=== PATIENT | female | born 1930 | race Caucasian/White ===

== ENCOUNTER 2017-02-26 12:13 | Outpatient (CLI) | payer MEDICARE, OTHER ==
[2017-02-26 12:44] LABS: BASOPHILS % (AUTO) 0.5 %; EOSINOPHILS # (AUTO) 0.1 10^3/uL (0.0-0.7); EOSINOPHILS % (AUTO) 2.7 %; HCT - HEMATOCRIT 38.3 % (37.0-47.0); HGB - HEMOGLOBIN 13.3 g/dL (12.0-16.0); LYMPHOCYTES # (AUTO) 0.8 10^3/uL (1.5-3.5); LYMPHOCYTES % (AUTO) 18.1 %; MEAN CORPUSCULAR HGB CONC 34.7 g/dL (32.0-36.0); MEAN CORPUSCULAR VOLUME 89.3 fL (81.0-99.0); MEAN PLATELET VOLUME 6.1 fL (7.9-10.8); MONOCYTES # (AUTO) 0.4 10^3/uL (0.0-1.0); MONOCYTES % (AUTO) 9.8 %; NEUTROPHILS # (AUTO) 3.1 10^3/uL (1.5-6.6); NEUTROPHILS % (AUTO) 68.9 %; RED CELL DISTRIBUTION WIDTH 13.7 % (12.0-15.0); UNCORRECTED WHITE BLOOD COUNT 4.5 x10^3/uL; WHITE BLOOD COUNT 4.5 x10^3/uL (4.8-10.8)
[2017-02-26 12:53] LABS: CALCIUM 9.2 mg/dL (8.5-10.3); CREATININE 0.7 mg/dL (0.4-1.0); POTASSIUM 4.1 mmol/L (3.5-5.0)
[2017-02-26 13:25] LABS: THYROID STIMULATING HORMONE 0.2 uIU/mL (0.34-5.60)
== END 2017-02-26 12:14 | disposition home or self-care (01) ==
LOC: LAB 12:13
PROVIDERS: ATTEND Family Medicine
DX: Z51.81 Encounter for therapeutic drug level monitoring (principal); I51.7 Cardiomegaly; E03.9 Hypothyroidism, unspecified; E87.8 Other disorders of electrolyte and fluid balance, not elsewhere classified; I48.91 Unspecified atrial fibrillation; R19.7 Diarrhea, unspecified; R15.2 Fecal urgency; Z12.11 Encounter for screening for malignant neoplasm of colon
CPT/HCPCS: 36415; 80048; 83880; 84439; 84443; 85025

== ENCOUNTER 2017-03-02 12:26 | Outpatient (CLI) | payer MEDICARE, OTHER | END 2017-03-02 12:27 | disposition home or self-care (01) | LOC: LAB.R 12:26 | PROVIDERS: ATTEND Family Medicine | DX: R19.7 Diarrhea, unspecified (principal); R15.2 Fecal urgency; Z12.11 Encounter for screening for malignant neoplasm of colon; E87.8 Other disorders of electrolyte and fluid balance, not elsewhere classified; E03.9 Hypothyroidism, unspecified; I48.91 Unspecified atrial fibrillation; I51.7 Cardiomegaly; Z51.81 Encounter for therapeutic drug level monitoring | CPT/HCPCS: 87045; 87046; 87177; 87209 ==

== ENCOUNTER 2017-03-06 08:00 | Outpatient (CLI) | payer MEDICARE, OTHER | END 2017-03-06 08:01 | disposition home or self-care (01) | LOC: LAB.R 08:00 | PROVIDERS: ATTEND Family Medicine | DX: Z51.81 Encounter for therapeutic drug level monitoring (principal); R19.7 Diarrhea, unspecified; R15.2 Fecal urgency; Z12.11 Encounter for screening for malignant neoplasm of colon; I48.91 Unspecified atrial fibrillation; I51.7 Cardiomegaly | CPT/HCPCS: 82270; 87045; 87046; 87493 ==

== ENCOUNTER 2017-05-21 12:34 | Outpatient (CLI) | payer MEDICARE, OTHER ==
[2017-05-21 14:19] LABS: THYROID STIMULATING HORMONE 0.19 uIU/mL (0.34-5.60)
[2017-05-21 14:21] LABS: FREE T4 (FREE THYROXINE) 1.31 ng/dL (0.58-1.64)
== END 2017-05-21 12:35 | disposition home or self-care (01) ==
LOC: LAB 12:34
PROVIDERS: ATTEND Family Medicine
DX: E03.9 Hypothyroidism, unspecified (principal)
CPT/HCPCS: 36415; 84439; 84443; 84481

== ENCOUNTER 2017-08-30 09:28 | Outpatient (CLI) | payer MEDICARE, OTHER ==
--- NOTE | 2017-08-30 15:04 | DEXA Report ---
DEXA SCAN: 08/30/2017 CLINICAL INDICATION: Osteoporosis. TECHNIQUE: Dual energy x-ray absorptiometry (DXA) was performed on a [employer] system. Regions measured are the AP spine, femoral neck, and, if needed, forearm. COMPARISON: None. In accordance with the International Society for Clinical Densitometry (ISCD) guidelines, data from previous exams may be reanalyzed using current recommendations and techniques. This is done to allow a more accurate basis for comparison with the current study. FINDINGS Data for the lumbar spine is as follows: REGION BMD (g/cm/cm) T-SCORE Z-SCORE L1 1.068 -0.5 1.6 L2 1.042 -1.3 0.8 L3 1.222 0.2 2.3 L4 1.237 0.3 2.5 L1-L4 1.149 -0.3 1.9 NOTE: All evaluable vertebrae are used for classification. Data for the hip is as follows: REGION BMD (g/cm/cm) T-SCORE Z-SCORE Neck 0.685 -2.5 0.0 TOTAL 0.736 -2.2 0.3 NOTE: The femoral neck or total proximal femur, whichever is lowest, is used for classification. IMPRESSION WHO CLASSIFICATION BASED ON THE INTERNATIONAL REFERENCE STANDARD IS OSTEOPOROSIS. (REFERENCE LEFT FEMORAL NECK). FRACTURE RISK IS HIGH. RECOMMENDATION: Patients with diagnosis of osteoporosis or osteopenia should have regular bone mineral density assessment. For those eligible for Medicare, routine testing is allowed once every 2 years. Testing frequency can be increased for patients who have rapidly progressing disease or for those who are receiving medical therapy to restore bone mass. COMMENT World Health Organization (WHO) definitions for osteoporosis and osteopenia: NORMAL BMD: T-score at 1.0 or higher, fracture risk is low. OSTEOPENIA BMD: T-score between 1.0 and -2.5, fracture risk is increased. OSTEOPOROSIS BMD: T-score at 2.5 or lower, fracture risk high. National Osteoporosis Foundation recommends: 1. Obtain adequate dietary calcium (at least 1200 mg per day) and vitamin D (400 -800 international units per day). 2. Participate, as appropriate, in regular weightbearing and muscle- strengthening exercise. 3. Avoid tobacco use and reduce alcohol and caffeine intake. 4. For more detailed information see the website at www.NOF.org. TD: 08/30/2017 11:11 MTDTom
== END 2017-08-30 09:29 | disposition home or self-care (01) ==
LOC: DI 09:28
PROVIDERS: ATTEND Family Medicine
DX: Z13.820 Encounter for screening for osteoporosis (principal); M81.0 Age-related osteoporosis without current pathological fracture; Z78.0 Asymptomatic menopausal state; M94.9 Disorder of cartilage, unspecified
CPT/HCPCS: 77080

== ENCOUNTER 2019-01-04 12:23 | Observation (INO) | payer MEDICARE, OTHER ==
[2019-01-04] MEDS ORDERED: diltiaZEM INJ 5 MG/ML VIAL ONE (13:10)
[2019-01-04] MEDS ORDERED: diltiaZEM INJ 5 MG/ML VIAL IVP STA (13:22)
--- NOTE | 2019-01-04 13:23 | ED Physician Documentation ---
PD HPI DYSPNEA - Stated complaint Stated Complaint: LOW BP - Chief complaint Chief Complaint: Cardiac - History obtained from History obtained from: Patient - History of Present Illness Timing - onset: Yesterday (This is a very pleasant 88-year-old woman with a remote history of paroxysmal atrial fibrillation who presents with weakness that started yesterday. She says it started while at the dentist although it does not sound like she had any meds/anesthetic. Since yesterday she has had weakness and shortness of breath. She has a longstanding cough and admits to some chest pressure since yesterday. She had a syncopal episode on getting out of the shower today without injury. No pedal edema. No changes in BMs, no urinary complaints.) Review of Systems Ten Systems: 10 systems reviewed and negative Constitutional: reports: Fatigue. denies: Fever, Chills, Myalgias Nose: denies: Rhinorrhea / runny nose, Congestion Cardiac: reports: Chest pain / pressure. 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 - Present Medications Home Medications: Ambulatory Orders Medication Instructions Recorded Confirmed Thyroid,Pork [[place] Thyroid] 15 mg PO QDAC 09/06/17 01/04/19 RX: Telmisartan 40 mg PO DAILY 03/07/18 01/04/19 RX: Thyroid,Pork [Rake Thyroid] 60 mg PO QDAC 01/04/19 01/04/19 - Allergies Allergies/Adverse Reactions: Allergies Allergy/AdvReac Type Severity Reaction Status Date / Time hydrocodone bitartrate * Allergy Nausea Verified 01/02/19 14:07 [From Vicodin] oxycodone [Oxycodone] Allergy Nausea Verified 01/02/19 14:07 Penicillins Allergy Hives Verified 01/02/19 14:07 tramadol Allergy Nausea Verified 01/02/19 14:07 - Social History Does the pt smoke?: No Smoking Status: Never smoker Does the pt drink ETOH?: No Does the pt have substance abuse?: No - Family History Family history: reports: Non contributory PD ED PE NORMAL - Vitals Vital signs reviewed: Yes - General General: Alert and oriented X 3, No acute distress - HEENT HEENT: PERRL, EOMI - Neck Neck: Supple, no meningeal sign, No bony TTP - Cardiac Cardiac: Other (Rapid and irregular without murmur) - Respiratory Respiratory: Other (She appears breathless but her lungs are clear) - Abdomen Abdomen: Normal bowel sounds, Soft, Non tender - Extremities Extremities: No edema, No calf tenderness / cord - Neuro Neuro: Alert and oriented X 3, Normal speech Results - Vitals Vitals: Vital Signs - 24 hr 01/04/19 01/04/19 01/04/19 12:28 12:45 13:58 Temperature 36.5 C Heart Rate 76 130 H 105 H Respiratory 18 20 16 Rate Blood Pressure 113/55 L 103/59 L 106/62 O2 Saturation 94 98 98 01/04/19 15:00 Temperature Heart Rate 58 L Respiratory 19 Rate Blood Pressure 94/55 L O2 Saturation 98 Oxygen O2 Source Room air - EKG (time done) 1232 Rate: Rate (enter#) (111) Rhythm: Atrial fibrillation Intervals: LBBB Computer interpretation: Agree with computer 1422 Rate: Rate (enter#) (56) Rhythm: NSR Intervals: LBBB Computer interpretation: Agree with computer - Labs Labs: Laboratory Tests 01/04/19 01/04/19 01/04/19 12:45 12:45 12:45 WBC 5.0 RBC 4.39 Hgb 14.0 Hct 40.1 MCV 91.3 MCH 31.9 H MCHC 34.9 RDW 13.2 Plt Count 204 MPV 9.0 Neut # (Auto) 3.9 Lymph # (Auto) 0.7 L [place] # (Auto) 0.3 Eos # (Auto) 0.0 Baso # (Auto) 0.0 Absolute Nucleated RBC 0.00 Nucleated RBC % 0.0 PT 12.0 INR 1.1 D-Dimer Sodium 138 Potassium 4.0 Chloride 102 Carbon Dioxide 26 Anion Gap 10.0 BUN 24 H Creatinine 0.9 Estimated GFR (MDRD) 59 L Glucose 131 H Calcium 9.7 Total Bilirubin 0.9 AST 27 ALT 23 Alkaline Phosphatase 72 Total Creatine Kinase 94 Troponin I High Sens B-Natriuretic Peptide Total Protein 7.1 Albumin 3.8 Globulin 3.3 Albumin/Globulin Ratio 1.2 Lipase 34 01/04/19 01/04/19 01/04/19 12:45 12:45 12:45 WBC RBC Hgb Hct MCV MCH MCHC RDW Plt Count MPV Neut # (Auto) Lymph # (Auto) [place] # (Auto) Eos # (Auto) Baso # (Auto) Absolute Nucleated RBC Nucleated RBC % PT INR D-Dimer 211.8 Sodium Potassium Chloride Carbon Dioxide Anion Gap BUN Creatinine Estimated GFR (MDRD) Glucose Calcium Total Bilirubin AST ALT Alkaline Phosphatase Total Creatine Kinase Troponin I High Sens 34.1 H* B-Natriuretic Peptide 392 H Total Protein Albumin Globulin Albumin/Globulin Ratio Lipase 01/04/19 14:41 WBC RBC Hgb Hct MCV MCH MCHC RDW Plt Count MPV Neut # (Auto) Lymph # (Auto) [place] # (Auto) Eos # (Auto) Baso # (Auto) Absolute Nucleated RBC Nucleated RBC % PT INR D-Dimer Sodium Potassium Chloride Carbon Dioxide Anion Gap BUN Creatinine Estimated GFR (MDRD) Glucose Calcium Total Bilirubin AST ALT Alkaline Phosphatase Total Creatine Kinase Troponin I High Sens 124.2 H* B-Natriuretic Peptide Total Protein Albumin Globulin Albumin/Globulin Ratio Lipase - Rads (name of study) 1v chest Radiology: EMP read contemporaneously (Question left tiny pleural effusion with clear lungs) PD MEDICAL DECISION MAKING - ED course ED course: This is an 88-year-old woman who presents with symptomatic atrial fibrillation probably starting yesterday by history. After 10 mg of diltiazem IV her heart rate was down around 100 and we started a procainamide drip. After about 20 minutes or so she had a sinus pause of 4.6 seconds and then was in sinus rhythm. She was symptom-free after that. A serial troponin was checked given the modest rise of the first 1 and it did almost triple going from 34-126. Case was discussed by phone with Dr. Rico,, on-call cardiology at [facility] who felt it was probably just a mild troponin leak from having had the rapid atrial fibrillation. He recommends a formal rule out and echo and pharmacologic stress test. He did not feel that she needed an interventional approach at this point. Spoke with Dr. Modi for observation. Departure - Departure Disposition: ED Place in Observation Clinical Impression: Chest pain, Atrial fibrillation Condition: Fair
[2019-01-04] MEDS ORDERED: ASPIRIN CHEW 81 MG TABLET PO STA (13:36)
[2019-01-04] MEDS ORDERED: PROCAINAMIDE 1,000 MG in SODIUM CHLORIDE 0.9% 240 ML IV STA (13:36)
[2019-01-04 13:42] LABS: BASOPHILS % (AUTO) 0.2 %; EOSINOPHILS % (AUTO) 0.8 %; LYMPHOCYTES # (AUTO) 0.7 10^3/uL (1.5-3.5); LYMPHOCYTES % (AUTO) 13.9 %; MEAN CORPUSCULAR HEMOGLOBIN 31.9 pg (27.0-31.0); MEAN CORPUSCULAR HGB CONC 34.9 g/dL (32.0-36.0); MEAN CORPUSCULAR VOLUME 91.3 fL (81.0-99.0); MONOCYTES # (AUTO) 0.3 10^3/uL (0.0-1.0); MONOCYTES % (AUTO) 5.1 %; NEUTROPHILS # (AUTO) 3.9 10^3/uL (1.5-6.6); NEUTROPHILS % (AUTO) 79.6 %; PLT - PLATELET COUNT 204 10^3/uL (130-450); RED BLOOD COUNT 4.39 10^6/uL (4.20-5.40); RED CELL DISTRIBUTION WIDTH 13.2 % (12.0-15.0)
--- NOTE | 2019-01-04 13:43 | XRAY Report ---
Reason: dyspnea Procedure Date: 01/04/2019 Accession Number: [id number] / [id number] Procedure: XR - Chest 1 View X-Ray CPT Code: 39440 FULL RESULT: EXAM: CHEST RADIOGRAPHY EXAM DATE: 01/04/2019 01:34 PM. CLINICAL HISTORY: Dyspnea. COMPARISON: XR CHEST PA AND LAT 01/18/2008 10:52 AM. TECHNIQUE: 1 view. FINDINGS: Lungs/Pleura: No focal opacities evident. No right pleural effusion. Question tiny left pleural effusion No pneumothorax. Mediastinum: Heart size accentuated by the AP portable technique. Other: Degenerative change in the spine with thoracolumbar junction levoscoliosis. IMPRESSION: Clear lungs. RADIA
[2019-01-04 13:52] LABS: INR 1.1 (0.8-1.2)
[2019-01-04 14:02] LABS: ALBUMIN 3.8 g/dL (3.2-5.5); ALBUMIN/GLOBULIN RATIO 1.2 (1.0-2.2); BILIRUBIN,TOTAL 0.9 mg/dL (0.2-1.0); CALCIUM 9.7 mg/dL (8.5-10.3); CREATININE 0.9 mg/dL (0.4-1.0); TOTAL PROTEIN 7.1 g/dL (6.7-8.2)
[2019-01-04] MEDS ORDERED: PROCHLORPERAZINE 10 MG/2 ML VIAL IVP PRN (16:08)
[2019-01-04] MEDS ORDERED: IBUPROFEN 400 MG TABLET PO PRN (16:08)
[2019-01-04] MEDS ORDERED: SODIUM CHLORIDE FLUSH 0.9% 10 ML SYRINGE IVP PRN (16:08)
[2019-01-04] MEDS ORDERED: NITROGLYCERIN SL 0.4 MG TABLET SL PRN (16:56)
[2019-01-04] MEDS: SODIUM CHLORIDE FLUSH 0.9% 10 ML SYRINGE IVP SCH ×2 (18:42→23:29)
--- NOTE | 2019-01-04 18:49 | HISTORY & PHYSICAL EXAMINATION ---
DATE OF SERVICE: 01/04/2019 Physician: Daniela Modi MD HISTORY OF PRESENT ILLNESS: This is an 88-year-old white female with a history of hypothyroidism on replacement [place] Thyroid, history of wide fluctuations in blood pressure, and orthostatic near-syncope in the past. Patient remembers remote atrial fibrillation and having a stress test once in the past. These results are not available to us. Today, the patient was finished with a shower, sitting and drying on her toilet seat, had a prodrome of lightheadedness when she stood up, and then found herself on the floor of the bathroom. She has never had full syncope before today. She was able to get up and then started to experience chest discomfort in the central chest with radiation to her neck and also a racing heart. She was brought to the emergency room and found to have atrial fibrillation with rapid ventricular response. She was treated with Cardizem bolus and then a Procainamide drip, and did convert to sinus rhythm, after having a 4.6 second pause of asystole. She had resolution of her chest pain symptoms and currently has no dizziness or any other complaints whatsoever. She does describe episodes of lightheadedness that occur infrequently, possibly up to 4 times a year, where she "has to hold onto her or she would fall" if she is in the upright position. She says she knows that these symptoms are caused by low blood pressure. MEDICATIONS 1. [place] Thyroid 75 mg p.o. daily. 2. Telmisartan 40 mg daily. ALLERGIES 1. TYLENOL, which caused itching. 2. HYDROCODONE AND OXYCODONE, which caused unknown reaction. 3. PENICILLINS. 4. TRAMADOL. FAMILY HISTORY: Family history of coronary artery disease in her father in his 80s. She has 2 children, 1 of either suicide or foul play. She has a daughter, who is healthy. 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 She lives with her currently and is active, gardens. She has never smoked in her life, drinks very rare alcohol, less than twice a year. No illicit drug use history. REVIEW OF SYSTEMS: A comprehensive review of systems was performed and the pertinent positives are listed, the rest are negative. PHYSICAL EXAMINATION GENERAL: Elderly white female who appears much younger than her stated age. VITAL SIGNS: Blood pressure 100/60 and heart rate was 130 on presentation. Her current blood pressure is 115/48, with a heart rate of 64, in sinus rhythm, afebrile, room air saturation 100%. HEENT: Unremarkable. NECK: Without JVD or carotid bruits. CHEST: Clear. HEART: Normal heart sounds. No murmurs. No gallop or click. ABDOMEN: Soft, positive bowel sounds, nontender. EXTREMITIES: No clubbing, cyanosis or edema. NEUROLOGIC: Grossly intact. LABORATORY DATA: Normal electrolytes. BUN 24, creatinine 0.9. Normal liver tests. Normal lipase. BNP 392. Her hs-roponins were 34.1, then 124. INR is normal at 1.1. D-dimer is normal at 211. CBC is normal. Chest x-ray: Normal. EKG #1: Atrial fibrillation with left bundle branch block. EKG #2: Sinus bradycardia with left bundle branch block. There was no old EKG available for comparison before today. IMPRESSION/DIAGNOSES 1. Chest pain. 2. Atrial fibrillation with rapid ventricular response. 3. Syncope. 4. History of hypertension 5. History of orthostasis. 6. Elevated troponins. PLAN: Place patient in Observation status on telemetry. Cycle troponins to determine if they are still continuing to rise. The EKG is not helpful regarding ischemia because of the left bundle branch block, and it is unknown if LBBB is new or old. Obtain an Echo to evaluate for resting wall motion abnormalities that are dramatic, more than just what is expected with left bundle branch block. Proceed to a stress test if there is no acute CO. The emergency room doctor had reached out to the [facility] Numerologist, who recommended that the above be the course of management for her. Will also check fasting serum lipids and treat per guidelines. Begin sublingual nitroglycerin p.r.n. CHADS score is unknown until she has an Echo to establish LVEF. However, her age is greater than 75, and there is a history of hypertension; therefore, she already has a score of 2. Will therefore start therapeutic anticoagulation using Lovenox for treatment of stroke prophylaxis in Afib. DEEP VENOUS THROMBOSIS PROPHYLAXIS: Pharmaceutical. CODE STATUS: FULL CODE. ATTESTATION: Patient is expected to be discharged or transferred to another facility within 96 hours: Yes. cc: Servando Martin DO TD: 01/04/2019 18:10 MTDTom
[2019-01-04] MEDS: FAMOTIDINE 20 MG TABLET PO SCH (20:36)
[2019-01-04] MEDS: ENOXAPARIN 60 MG/0.6 ML SYRINGE SUBQ SCH (20:36)
[2019-01-04] MEDS: METOPROLOL TARTRATE 25 MG TABLET PO SCH (20:38)
[2019-01-04] MEDS ORDERED: ATORVASTATIN 40 MG TABLET PO SCH (21:00)
[2019-01-05 06:15] LABS: BUN - BLOOD UREA NITROGEN 22 mg/dL (6-20); CALCIUM 8.9 mg/dL (8.5-10.3); CARBON DIOXIDE - CO2 27 mmol/L (21-32); CHLORIDE 111 mmol/L (101-111); CHOL/HDL RATIO 4.5 (<4.4); CHOLESTEROL 156 mg/dL; CREATININE 0.7 mg/dL (0.4-1.0); GFR - MDRD 79 (>89); GLUCOSE 103 mg/dL (70-100); HDL CHOLESTEROL 35 mg/dL; LDL CHOLESTEROL,CALCULATED 108 mg/dL; LDL/HDL RATIO 3.1 (<4.4); MAGNESIUM 2.2 mg/dL (1.7-2.8); SODIUM 142 mmol/L (135-145); VLDL CHOLESTEROL 13 mg/dL
[2019-01-05] MEDS ORDERED: THYROID 60 MG TABLET PO SCH (07:00)
[2019-01-05] MEDS: METOPROLOL TARTRATE 25 MG TABLET PO SCH (08:33)
[2019-01-05] MEDS: FAMOTIDINE 20 MG TABLET PO SCH (08:33)
[2019-01-05] MEDS: ENOXAPARIN 60 MG/0.6 ML SYRINGE SUBQ SCH (08:34)
[2019-01-05] MEDS: SODIUM CHLORIDE FLUSH 0.9% 10 ML SYRINGE IVP SCH (08:34)
[2019-01-05] MEDS ORDERED: POLYETHYLENE GLYCOL 3350 17 GM PACKET PO SCH (09:00)
[2019-01-05] MEDS ORDERED: LOSARTAN 50 MG TABLET PO SCH (09:00)
[2019-01-05] MEDS ORDERED: ASPIRIN EC 81 MG TABLET PO SCH (11:04)
--- NOTE | 2019-01-05 11:59 | Discharge Plan ---
Discharge Plan Problem Reviewed?: Yes Disposition: 02 Transfer Acute Care Hosp Condition: Serious No Smoking: If you smoke, Please STOP! Call for help. Follow-up with: Servando Martin DO [Primary Care Provider] -
[2019-01-05] MEDS ORDERED: D5NS W/20 MEQ KCL 1,000 ML IV SCH (12:00)
[2019-01-05 12:58] VITALS: BP 143/67
--- NOTE | 2019-01-05 17:20 | DISCHARGE SUMMARY ---
Discharge Summary Admit Date: 01/04/19 Discharge Date: 01/05/19 Discharging Provider: Dr Daniela Modi Primary Care Provider: Dr Servando Martin Code Status: Attempt Resuscitation Condition at Discharge: Serious Discharge Disposition: 02 Transfer Acute Care Hosp - DIAGNOSES Admission Diagnoses: 1) Chest pain 2) LBBB 3) Afib with RVR 4) Syncope 5) Hx orthostatic hypotension Discharge Diagnoses with Status of Each Condition: See below - HPI History of Present Illness: This is an 88-year-old white female with a remote history of A. fib and has a history of hyper hypothyroidism on [place] Thyroid replacement and history of hypertension on telmisartan. Patient reports orthostatic lightheadedness and has never had syncope. The patient was brought to the emergency room by her after having 2 days of intermittent chest pressure and new weakness and she had a syncopal event: A fter taking a shower, after drying off on the toilet seat, she stood up and became lightheaded and then had syncope in the bathroom. She awakened and was able to call for her who helped her into bed. He called the PCP who advised she get to the ER. In the ER she was found to have new onset of A. fib with RVR, at a rate of 130 and stable blood pressure. She was given Cardizem 10 mg IV push then put on a Procan drip which resulted in a 4.6-second pause and she converted to sinus rhythm. There was no further chest pain after she converted to sinus rhythm. She was placed in Observation status, on telemetry for evaluation of the chest pain and management of the rhythm. - HOSPITAL COURSE Hospital Course: 1) Acute NSTEMI. The EKG in the ER showed rapid A. fib with a left bundle branch block, then sinus rhythm with left bundle branch block. There is no old EKG here for comparison. Her first at hs-Troponin was 34. The next hs-Troponins continued to rise: 124>> 523>> 841>> 656. She had been started on therapeutic Lovenox doses for the A. fib (see below), and with the hs-troponin increase, she was started on beta-ruth orally, high-dose statin and daily aspirin. This Hospitalist reached out to a Deputy Felony Clerk at [facility] who accepted the patient in transfer for coronary angiography, where she was transferred by [facility] ambulance. 2) LBBB. This was managed as new LBBB, criteria for ruling in for an TN. 3) Afib with RVR. Patient reported minimal palpitation symptoms when she was in Afib. After chemical cardioversion in the ER, she remained in sinus rhyth. Her CHADS score was 2 and she was started on Lovenox 1 mg/kg subcutaneous twice daily. She was also put on beta-blockers orally to treat both the TN and any recurrences of A. fib with RVR. She underwent an Echo which showed LVEF of approximately 45%, moderate mitral regurg, moderate tricuspid regurg and PA pressure 45 mmHg. 4) Syncope. The patient reported a brief prodrome of lightheadedness. She reported a history of several years of lightheadedness associated with orthostasis (see below), And described that these always happened in the standing position and she manages them by "just holding onto her 's arm". This was the only time he was not present near her. She and the were given education regarding management of lightheadedness and orthostatic symptoms. 5) Orthostatic hypotension. The patient describes years of having very erratic blood pressures and by this she meant that there were rapid drops in her blood pressure which were associated with symptoms. She had never been on support stockings or Midodrine for this problem. 6) Hx HTN Due to a history of orthostasis and running a soft BP here of 110/40's, her Telmisartan home medication was discontinued, in order to use a small dose of beta-ruth for the TN and A. fib management. 7) Hx Hypothyroidism. Her TSH level was stable. She was continued on her home dose of [place] Thyroid while here. - ALLERGIES Allergies/Adverse Reactions: Allergies Allergy/AdvReac Type Severity Reaction Status Date / Time hydrocodone bitartrate * Allergy Nausea Verified 01/02/19 14:07 [From Vicodin] oxycodone [Oxycodone] Allergy Nausea Verified 01/02/19 14:07 Penicillins Allergy Hives Verified 01/02/19 14:07 tramadol Allergy Nausea Verified 01/02/19 14:07 - MEDICATIONS Home Medications: Ambulatory Orders Medication Instructions Recorded Confirmed Thyroid,Pork [[place] Thyroid] 15 mg PO QDAC 09/06/17 01/04/19 Telmisartan 40 mg PO DAILY 10/29/18 08/28/19 Thyroid,Pork [[place] Thyroid] 60 mg PO QDAC 01/04/19 01/04/19 - PHYSICAL EXAM AT DISCHARGE General Appearance: positive: No acute distress Eyes Bilateral: positive: Normal inspection ENT: positive: Dry mucous membranes Neck: positive: Nml inspection, Thyroid nml, No JVD Respiratory: positive: No respiratory distress, Breath sounds nml Cardiovascular: positive: Regular rate & rhythm, No murmur Back: positive: Other (Scoliosis) Extremities: positive: No pedal edema Neurologic/Psychiatric: positive: Oriented x3, Other (Non-focal exam.) - LABS Result Diagrams: 01/04/19 12:45 01/05/19 05:41 - DIAGNOSTIC IMAGING Diagnostic Imaging Results: Final report reviewed - FOLLOW UP Follow Up: See PCP after discharge from [facility] - TIME SPENT Time Spent in Discharge (Minutes): 60
== END 2019-01-05 13:51 | disposition short-term general hospital (02) ==
LOC: ED 12:23 → MS2 16:06
PROVIDERS: ADMIT Internal Medicine; ATTEND Internal Medicine
DX: I21.4 Non-ST elevation (NSTEMI) myocardial infarction (principal); I44.7 Left bundle-branch block, unspecified; I48.0 Paroxysmal atrial fibrillation; I11.9 Hypertensive heart disease without heart failure; I34.0 Nonrheumatic mitral (valve) insufficiency; I95.1 Orthostatic hypotension; E03.9 Hypothyroidism, unspecified
CPT/HCPCS: 36415; 71045; 80048; 80053; 80061; 82550; 83690; 83735; 83880; 84443; 84484; 85025; 85379; 85610; 93005; 93306; 96365; 96372; 96375; 99285; A9270; G0378; J1650; J2690; 83721

== ENCOUNTER 2019-05-04 15:46 | Outpatient (CLI) | payer MEDICARE, OTHER | END 2019-05-04 15:47 | disposition home or self-care (01) | LOC: LAB 15:46 | PROVIDERS: ATTEND Family Medicine | DX: R06.00 Dyspnea, unspecified (principal) | CPT/HCPCS: 36415; 85379 ==

== ENCOUNTER 2019-05-04 17:05 | Emergency (ER) | payer MEDICARE, OTHER ==
[2019-05-04 17:40] LABS: BASOPHILS % (AUTO) 0.3 %; EOSINOPHILS # (AUTO) 0.1 10^3/uL (0.0-0.7); EOSINOPHILS % (AUTO) 2.1 %; HGB - HEMOGLOBIN 11.4 g/dL (12.0-16.0); LYMPHOCYTES % (AUTO) 16.8 %; MEAN CORPUSCULAR HEMOGLOBIN 29.5 pg (27.0-31.0); MEAN CORPUSCULAR HGB CONC 31.4 g/dL (32.0-36.0); MONOCYTES # (AUTO) 0.5 10^3/uL (0.0-1.0); MONOCYTES % (AUTO) 8.3 %; NEUTROPHILS # (AUTO) 4.4 10^3/uL (1.5-6.6); PLT - PLATELET COUNT 290 10^3/uL (130-450); RED BLOOD COUNT 3.86 10^6/uL (4.20-5.40); RED CELL DISTRIBUTION WIDTH 14.7 % (12.0-15.0); WHITE BLOOD COUNT 6.1 x10^3/uL (4.8-10.8)
--- NOTE | 2019-05-04 17:41 | ED Physician Documentation ---
History of Present Illness - Stated complaint Stated Complaint: SOA/COUGH - Chief complaint Chief Complaint: General - History obtained from History obtained from: Patient - History of Present Illness Timing: Last night (88-year-old woman with history of atrial fibrillation on Xarelto presents with orthopnea starting last night. And some breathlessness. No chest pain. She does have pedal edema on the left. She is exactly 3 weeks out from a left knee replacement. She saw her physician who called me prior to arrival and he had done a d-dimer which was up in the 900s so she was sent here for evaluation for potential PE.) Review of Systems Ten Systems: 10 systems reviewed and negative Constitutional: denies: Fever, Chills Cardiac: denies: Chest pain / pressure, Palpitations Respiratory: reports: Dyspnea. 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 - Present Medications Home Medications: Ambulatory Orders Medication Instructions Recorded Confirmed Thyroid,Pork [[place] Thyroid] 15 mg PO QDAC 09/06/17 01/04/19 Telmisartan 40 mg PO DAILY 03/07/18 01/04/19 Thyroid,Pork [[place] Thyroid] 60 mg PO QDAC 01/04/19 01/04/19 - Allergies Allergies/Adverse Reactions: Allergies Allergy/AdvReac Type Severity Reaction Status Date / Time hydrocodone bitartrate * Allergy Nausea Verified 05/04/19 17:22 [From Vicodin] oxycodone [Oxycodone] Allergy Nausea Verified 05/04/19 17:22 Penicillins Allergy Hives Verified 05/04/19 17:22 - Social History Does the pt smoke?: No Smoking Status: Never smoker Does the pt drink ETOH?: No Does the pt have substance abuse?: No PD ED PE NORMAL - Vitals Vital signs reviewed: Yes - General General: Alert and oriented X 3, No acute distress - Neck Neck: Supple, no meningeal sign, No JVD - Cardiac Cardiac: RRR, No murmur - Respiratory Respiratory: No respiratory distress, Clear bilaterally - Abdomen Abdomen: Non tender - Back Back: No CVA TTP, No spinal TTP - Derm Derm: Normal color, Warm and dry - Extremities Extremities: Other (Moderate left leg edema below the knee without evidence of infection) - Neuro Neuro: Alert and oriented X 3, Normal speech Results - Vitals Vitals: Vital Signs - 24 hr 05/04/19 05/04/19 17:16 19:11 Temperature 36.6 C Heart Rate 73 Respiratory 20 Rate Blood Pressure 176/159 H 154/82 H Oxygen O2 Source Room air - EKG (time done) 1730 Rate: Rate (enter#) (77) Rhythm: NSR Intervals: Normal VT, LBBB Compare to prior EKG: Unchanged from prior EKG (Unchanged from January 05 of this year) Computer interpretation: Agree with computer - Labs Labs: Laboratory Tests 05/04/19 05/04/19 05/04/19 17:30 17:30 17:30 WBC 6.1 RBC 3.86 L Hgb 11.4 L Hct 36.3 L MCV 94.0 MCH 29.5 MCHC 31.4 L RDW 14.7 Plt Count 290 MPV 8.0 Neut # (Auto) 4.4 Lymph # (Auto) 1.0 L [place] # (Auto) 0.5 Eos # (Auto) 0.1 Baso # (Auto) 0.0 Absolute Nucleated RBC 0.00 Nucleated RBC % 0.0 PT 13.9 H INR 1.2 Sodium 139 Potassium 3.6 Chloride 104 Carbon Dioxide 26 Anion Gap 9.0 BUN 18 Creatinine 0.7 Estimated GFR (MDRD) 79 L Glucose 102 H Calcium 9.1 Total Bilirubin 0.7 AST 48 H ALT 47 Alkaline Phosphatase 182 H Troponin I High Sens B-Natriuretic Peptide Total Protein 7.3 Albumin 3.6 Globulin 3.7 Albumin/Globulin Ratio 1.0 Lipase 37 05/04/19 05/04/19 17:30 17:30 WBC RBC Hgb Hct MCV MCH MCHC RDW Plt Count MPV Neut # (Auto) Lymph # (Auto) [place] # (Auto) Eos # (Auto) Baso # (Auto) Absolute Nucleated RBC Nucleated RBC % PT INR Sodium Potassium Chloride Carbon Dioxide Anion Gap BUN Creatinine Estimated GFR (MDRD) Glucose Calcium Total Bilirubin AST ALT Alkaline Phosphatase Troponin I High Sens 20.5 H* B-Natriuretic Peptide 1011 H Total Protein Albumin Globulin Albumin/Globulin Ratio Lipase PD MEDICAL DECISION MAKING - ED course ED course: 88-year-old woman presents with symptoms consistent with mild CHF, concern for PE given positive outpatient d-dimer and recent surgical procedure followed with a CT which was negative except for incidental cholelithiasis. She did not want to take Lasix here given the time of night so will take it in the morning. Departure - Departure Disposition: 01 Home, Self Care Clinical Impression: Dyspnea Qualifiers: Dyspnea type: shortness of breath Qualified Code(s): R06.02 - Shortness of jason ath; R06.00 - Dyspnea, unspecified; R06.01 - Orthopnea CHF (congestive heart failure) Qualifiers: Heart failure type: unspecified Heart failure chronicity: unspecified Qualified Code(s): I50.9 - Heart failure, unspecified Condition: Good Record reviewed to determine appropriate education?: Yes Instructions: ED CHF General Comments: Follow-up with Dr. Martin, next available appointment. Return for new or worsening symptoms.
[2019-05-04 17:48] LABS: INR 1.2 (0.8-1.2); PT - PROTHROMBIN TIME 13.9 secs (9.9-12.6)
[2019-05-04 17:54] LABS: ALBUMIN 3.6 g/dL (3.2-5.5); BILIRUBIN,TOTAL 0.7 mg/dL (0.2-1.0); CALCIUM 9.1 mg/dL (8.5-10.3); CREATININE 0.7 mg/dL (0.4-1.0); TOTAL PROTEIN 7.3 g/dL (6.7-8.2)
[2019-05-04] MEDS ORDERED: IOVERSOL 320 100 ML VIAL IVP ONE ×2 (17:59→19:31)
--- NOTE | 2019-05-04 18:53 | CT Report ---
Reason: PE protocol, dyspnea, high dimer Procedure Date: 05/04/2019 Accession Number: [id number] / [id number] Procedure: CT - ANGIO CHEST W/WO CPT Code: Final Report FULL RESULT: EXAM: CT ANGIOGRAM CHEST EXAM DATE: 05/04/2019 06:25 PM. CLINICAL HISTORY: Pulmonary embolism protocol, dyspnea, high d-dimer. COMPARISON: ABDOMEN/PELVIS W/ 04/01/2018 10:40 AM. TECHNIQUE: Routine helical imaging was performed through the chest in the pulmonary arterial phase. IV Contrast: CE. Reconstructions: Coronal 3-D MIP reconstructions.Sagittal and coronal. In accordance with CT protocol optimization, one or more of the following dose reduction techniques were utilized for this exam: automated exposure control, adjustment of mA and/or KV based on patient size, or use of iterative reconstructive technique. FINDINGS: Pulmonary Arteries: Diagnostic quality: Adequate through the segmental arteries. No evidence for acute or chronic pulmonary emboli. RV/LV is within normal limits. There is no interventricular septal bowing. There is no reflux of contrast material in the IVC. Lungs/Pleura: No acute airspace consolidation. There is mild septal thickening at the lung bases. No suspicious lung nodules. No pleural effusion or pneumothorax. Mediastinum: Normal. No cardiac enlargement or adenopathy. Thoracic Aorta: Unremarkable. Upper Abdomen: Cholelithiasis. Other: None. IMPRESSION: 1. No pulmonary embolism. 2. Cholelithiasis. RADIA
[2019-05-04 19:12] VITALS: BP 154/82
[2019-05-04] MEDS ORDERED: FUROSEMIDE 20 MG TABLET PO STA (19:14)
== END 2019-05-04 19:26 | disposition home or self-care (01) ==
LOC: ED 17:05
DX: I50.9 Heart failure, unspecified (principal); R06.00 Dyspnea, unspecified; Z96.652 Presence of left artificial knee joint
CPT/HCPCS: 36415; 71275; 80053; 83690; 83880; 84484; 85025; 85379; 85610; 93005; 99284; 99285; A9270; Q9967

== ENCOUNTER 2019-09-06 11:27 | Outpatient (CLI) | payer MEDICARE, OTHER ==
--- NOTE | 2019-09-06 16:52 | XRAY Report ---
Reason: ACUTE ON CHRONIC LBP -TRAUMA Procedure Date: 09/06/2019 Accession Number: [id number] / [id number] Procedure: XR - Lumbar Spine 2 View CPT Code: Final Report FULL RESULT: EXAM: LUMBOSACRAL SPINE RADIOGRAPHY EXAM DATE: 09/06/2019 11:44 AM. CLINICAL HISTORY: ACUTE ON CHRONIC LBP -TRAUMA. COMPARISONS: LUMBAR SPINE 2 VIEW 04/29/2013 2:10 PM ABDOMEN/PELVIS W/ 04/01/2018 10:40 AM. TECHNIQUE: 3 views. FINDINGS: Alignment: Moderate left convex upper lumbar spine curvature, as before. 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 Bones: Five [id number] lumbar vertebral bodies are present. No fractures or bone lesions. Disks: Disk height loss and endplate osteophyte formation indicating degenerative disk disease which is mild throughout the lower thoracic and lumbar spine. Facets: Moderate bilateral facet sclerosis at L3-L4, L4-L5, and L5-S1. Sacroiliac Joints: Unremarkable. Soft Tissues: Normal. The visualized bowel gas pattern is normal. IMPRESSION: 1. Moderate left convex upper lumbar scoliosis, as before. 2. Mild multilevel lumbar degenerative disk disease, as before. 3. Moderate bilateral facet osteoarthritis L3-L4 through L5-S1, as before. 4. 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 RADIA
== END 2019-09-06 11:28 | disposition home or self-care (01) ==
LOC: DI 11:27
PROVIDERS: ATTEND Family Medicine
DX: M47.816 Spondylosis without myelopathy or radiculopathy, lumbar region (principal); M47.817 Spondylosis without myelopathy or radiculopathy, lumbosacral region; M51.36 Other intervertebral disc degeneration, lumbar region; M41.9 Scoliosis, unspecified; M43.16 Spondylolisthesis, lumbar region
CPT/HCPCS: 72100

== ENCOUNTER 2019-12-25 15:23 | Outpatient (CLI) | payer MEDICARE, OTHER ==
--- NOTE | 2019-12-25 16:02 | XRAY Report ---
PROCEDURE: Hand 3 View LT INDICATIONS: R GREAT TOE AND LEFT THUMB PAIN TECHNIQUE: 3 views of the left hand acquired. COMPARISON: None FINDINGS: Bones: No fractures or dislocations. No suspicious bony lesions. Severe primary osteoarthritis of multiple joints. Joint involvement includes the triscaphe joint, the first carpometacarpal joint, the first MCP and IP joints, the second and third MCP joints, the second and fourth PIP joints, and the second through fifth DIP joints. Soft tissues: No suspicious soft tissue calcifications. IMPRESSION: Advanced primary osteoarthritis involving the wrist and hand. No evidence acute bony abnormality of t he left hand. Reviewed by: Mazin Pérez MD on 12/25/2019 4:00 PM PDT Approved by: Mazin Pérez MD on 12/25/2019 4:00 PM PDT Station ID: [id number]
--- NOTE | 2019-12-25 16:02 | XRAY Report ---
PROCEDURE: Foot 3 View RT INDICATIONS: R GREAT TOE AND LEFT THUMB PAIN TECHNIQUE: 3 views of the foot were acquired. COMPARISON: None FINDINGS: Bones: No fractures or dislocations. No suspicious bony lesions. End-stage degenerative arthritis of the first MTP joint. Soft tissues: No tibiotalar joint effusion. Achilles tendon appears normal. IMPRESSION: End-stage degenerative arthritis of the first MTP joint. Reviewed by: Mazin Pérez MD on 12/25/2019 4:01 PM PDT Approved by: Mazin Pérez MD on 12/25/2019 4:01 PM PDT Station ID: [id number]
== END 2019-12-25 15:24 | disposition home or self-care (01) ==
LOC: DI 15:23
PROVIDERS: ATTEND Family Medicine
DX: M19.071 Primary osteoarthritis, right ankle and foot (principal); M19.042 Primary osteoarthritis, left hand; M19.032 Primary osteoarthritis, left wrist